=== PATIENT | male | born 1950 | race Caucasian/White ===

== ENCOUNTER 2016-05-13 19:03 | Emergency (ER) | payer MEDICAID ==
[2015-12-13 11:12] VITALS: Ht 182.9 cm; Wt 108.0 kg
[~2016-05-13] VITALS: Ht 182.9 cm; Wt 108.0 kg
[2016-05-13 19:03] VITALS: BP 127/70; PULSE 85; RESP 28; TEMP 97.9; O2SAT 97
[~2016-05-13 19:03] MED LIST: ALPHAGAN1 OP; ASA; ASA81 PO; CLOP75TA32 PO; FENTANYL; GLIP-172 PO; GLIP2.5T3 PO; GLUXR500 PO; HYDR-1189 PO; ISOS30TA PO; LISINOPRIL; METF-510 PO; METFORMIN; METO25TA3 PO; METO25TA6 PO; METOPROLOL; NITROSTAT; NITSL SL; OMEG1CAP55 PO; PARO-41 PO; PLAVIX; PREDEYE1% OP; PRO40 PO; SIMV40TA2 PO; SIMVASTATIN; TIMO5DRO4 OP; TORBREX OP; TYC3 PO
--- NOTE | 2016-05-13 19:03 | NUR ---
BIB 154, Placed in room 03. Placed on commercial litigation paralegal, blood pressure machine and pulse oximeter. To gown for exam. Side rails up. Report given to RAJAT Mast.
--- NOTE | 2016-05-13 19:15 | NUR ---
Patient alert and oriented x 4. Patient was brought in by ambulance with a complaint of sharp pain on the left upper chest and left side. No acute distress or SOB noted. O2 sat at 95%. Breathing even and unlabored. Pain scale 10/10. Will continue to monitor.
--- NOTE | 2016-05-13 19:20 | NUR ---
ER Dr. Rolon at bedside examining patient.
[2016-05-13] MEDS ORDERED: MORPHINE 4 MG/ML INJ. SYRINGE IVP ONE (19:30)
[2016-05-13] MEDS ORDERED: ONDANSETRON HCL 4 MG/2 ML VIAL IVP ONE ×2 (19:30→20:45)
[2016-05-13 19:42] LABS: BASOPHILS % (AUTO) 0.4 % (0.0-2.0); EOSINOPHILS # (AUTO) 0.3 K/uL (0.0-0.4); EOSINOPHILS % (AUTO) 3.5 % (0.0-4.0); HEMATOCRIT 44.3 % (36-54); HEMOGLOBIN 15.4 g/dL (14.0-18.0); LYMPHOCYTES # (AUTO) 1.3 K/uL (1.0-5.5); LYMPHOCYTES % (AUTO) 13.1 % (20.5-51.5); MEAN CORPUSCULAR HEMOGLOBIN 29 pg (27-31); MEAN CORPUSCULAR HGB CONC 35 % (32-36); MEAN CORPUSCULAR VOLUME 83 fL (79.0-98.0); MONOCYTES # (AUTO) 0.6 K/uL (0.0-1.0); MONOCYTES % (AUTO) 6.4 % (1.7-9.3); NEUTROPHILS # (AUTO) 7.4 K/uL (1.8-7.7); NEUTROPHILS % (AUTO) 76.6 % (40.0-70.0); PLATELET COUNT (AUTO) 152 K/uL (130-430); RED BLOOD CELL COUNT(AUTO) 5.33 MIL/uL (4.2-6.2); RED CELL DISTRIBUTION WIDTH 12.7 % (9.0-15.0); WHITE BLOOD COUNT (AUTO) 9.6 K/uL (4.8-10.8)
[2016-05-13 19:44] LABS: CALCIUM 9.1 mg/dL (8.4-11.0); CREATININE 1.07 mg/dL (0.55-1.30); POTASSIUM 3.4 mmol/L (3.5-5.1)
[2016-05-13 19:49] LABS: ALBUMIN 3.8 g/dL (3.4-4.8); INR 0.9 (0.80-1.20); PROTHROMBIN TIME 10.3 SECS (9.5-12.5); TOTAL BILIRUBIN 0.4 mg/dL (0.0-1.0); TOTAL PROTEIN, SERUM 7.1 g/dL (6.4-8.3)
[2016-05-13] MEDS ORDERED: NACL 0.9% 1,000 ML IV ONE (20:45)
[2016-05-13] MEDS ORDERED: MAG HYDROX/AL HYDROX/SIMETH 30 ML, BELLADONNA ALKALOIDS/PHENOBARB 10 ML, LIDOCAINE VISC... PO ONE ×3 (20:45)
[2016-05-13 21:15] VITALS: BP 110/68; PULSE 72; RESP 20; TEMP 97.8; O2SAT 98
--- NOTE | 2016-05-13 21:15 | NUR ---
Patient given written and verbal discharge instructions and verbalizes understanding. ER MD discussed with patient the results and treatment provided. Patient in stable condition. No acute distress or SOB noted upon discharge. Patient was even joking around while walking towards the exit. ID arm band removed. IV catheter removed intact and dressing applied, no active bleeding. Rx of Pepcid and Mylanta given. Patient educated on pain management. Pain Scale 0/10. Opportunity for questions provided and answered.
== END 2016-05-13 21:15 | disposition home or self-care (01) ==
LOC: SED 19:03
DX: K21.9 Gastro-esophageal reflux disease without esophagitis (principal); R55 Syncope and collapse; E11.9 Type 2 diabetes mellitus without complications; I10 Essential (primary) hypertension; I25.2 Old myocardial infarction; Z79.4 Long term (current) use of insulin
CPT/HCPCS: 36415; 71010; 80053; 83735; 84484; 85025; 85610; 85730; 93005; 96361; 96374; 96375; 96376; 99285; J2001; J2270; J2405; J7030

== ENCOUNTER 2016-08-19 18:23 | Emergency (ER) | payer MEDICAID ==
[~2016-08-19] VITALS: Ht 182.9 cm; Wt 128.8 kg
[~2016-08-19 18:23] MED LIST changes: -ASA; -ASA81 PO; -FENTANYL; -GLIP-172 PO; -GLIP2.5T3 PO; -GLUXR500 PO; -LISINOPRIL; -METFORMIN; -METO25TA3 PO; -METOPROLOL; -NITROSTAT; -OMEG1CAP55 PO; -PARO-41 PO; -PLAVIX; -PRO40 PO; -SIMV40TA2 PO; -SIMVASTATIN
[2016-08-19 18:29] VITALS: BP_SYST 127
[2016-08-19 20:35] VITALS: BP_SYST 124
== END 2016-08-19 20:35 | disposition home or self-care (01) ==
LOC: SED 18:23
DX: S60.512A Abrasion of left hand, initial encounter (principal); E11.9 Type 2 diabetes mellitus without complications; I10 Essential (primary) hypertension; Z79.84 Long term (current) use of oral hypoglycemic drugs; Z79.899 Other long term (current) drug therapy; W57.XXXA Bitten or stung by nonvenomous insect and other nonvenomous arthropods, initial encounter; Y93.89 Activity, other specified; Y92.89 Other specified places as the place of occurrence of the external cause; Y99.8 Other external cause status
CPT/HCPCS: 99281

== ENCOUNTER 2016-11-04 23:04 | Inpatient (IN) | payer MEDICAID ==
[~2016-11-04] VITALS: Ht 182.9 cm; Wt 71.7 kg
[2016-11-04 23:04] VITALS: BP_SYST 106
[2016-11-04] MEDS ORDERED: NACL 0.9% 1,000 ML IV ONE (23:30)
[2016-11-04 23:48] LABS: BASOPHILS % (AUTO) 0.7 % (0.0-2.0); EOSINOPHILS # (AUTO) 0.2 K/uL (0.0-0.4); EOSINOPHILS % (AUTO) 3.2 % (0.0-4.0); HEMATOCRIT 40.4 % (36-54); HEMOGLOBIN 13.8 g/dL (14.0-18.0); LYMPHOCYTES # (AUTO) 2.7 K/uL (1.0-5.5); MEAN CORPUSCULAR HEMOGLOBIN 30 pg (27-31); MEAN CORPUSCULAR HGB CONC 34 % (32-36); MEAN CORPUSCULAR VOLUME 87 fL (79.0-98.0); MONOCYTES # (AUTO) 0.6 K/uL (0.0-1.0); MONOCYTES % (AUTO) 8.5 % (1.7-9.3); NEUTROPHILS # (AUTO) 3.3 K/uL (1.8-7.7); NEUTROPHILS % (AUTO) 47.6 % (40.0-70.0); PLATELET COUNT (AUTO) 190 K/uL (130-430); RED BLOOD CELL COUNT(AUTO) 4.67 MIL/uL (4.2-6.2); RED CELL DISTRIBUTION WIDTH 12.6 % (9.0-15.0); WHITE BLOOD COUNT (AUTO) 6.8 K/uL (4.8-10.8)
[2016-11-05] VITALS (7 sets, daily range): BP systolic 92–133
[2016-11-05] LABS: CALCIUM 9.8 mg/dL (8.4-11.0); CREATININE 1.1 mg/dL (0.55-1.30); POTASSIUM 3.8 mmol/L (3.5-5.1)
[2016-11-05 00:15] LABS: ALBUMIN 3.3 g/dL (3.4-4.8); THYROID STIMULATING HORMONE 2.81 uIu/mL (0.34-4.82); TOTAL BILIRUBIN 0.4 mg/dL (0.0-1.0)
[2016-11-05] MEDS ORDERED: FENO160 PO (00:39)
[2016-11-05] MEDS ORDERED: DIA250 PO (00:39)
[2016-11-05] MEDS ORDERED: SIMV20TA2 PO (00:39)
[2016-11-05] MEDS ORDERED: ZOLP5TAB2 PO (00:39)
[2016-11-05 00:55] LABS: BILIRUBIN,URINE NEGATIVE (NEGATIVE); BLOOD, URINE NEGATIVE (NEGATIVE); CLARITY/URINE HAZY (CLEAR); COLOR,URINE YELLOW (YELLOW); GLUCOSE,URINE NEGATIVE (NEGATIVE); KETONES,URINE NEGATIVE (NEGATIVE); LEUKOCYTE ESTERASE ,URINE NEGATIVE (NEGATIVE); NITRITE, URINE NEGATIVE (NEGATIVE); PH,URINE 7.5 (5.0-8.0); PROTEIN URINE NEGATIVE (NEGATIVE)
[2016-11-05] MEDS ORDERED: INSULIN REGULAR, HUMAN 100 UNITS/ML, 10 ML VIAL (novoLIN R) SUBCUT PRN (02:30)
[2016-11-05] MEDS ORDERED: ENOXAPARIN SODIUM 40 MG/0.4 ML SYRINGE SUBCUT SCH (09:00)
[2016-11-05] MEDS ORDERED: ASPIRIN 325 MG TABLET (ECOTRIN) PO SCH (09:00)
[2016-11-05] MEDS ORDERED: METOPROLOL TARTRATE 25 MG TABLET PO SCH (09:00)
== END 2016-11-05 19:30 | disposition home or self-care (01) | DRG 198 ==
LOC: SED 23:04 → STU 11-05 02:20
DX: I25.119 Atherosclerotic heart disease of native coronary artery with unspecified angina pectoris (principal); E44.1 Mild protein-calorie malnutrition; I10 Essential (primary) hypertension; R00.1 Bradycardia, unspecified; E11.9 Type 2 diabetes mellitus without complications; E78.5 Hyperlipidemia, unspecified; W19.XXXA Unspecified fall, initial encounter; Y93.89 Activity, other specified; Y92.090 Kitchen in other non-institutional residence as the place of occurrence of the external cause; Y99.8 Other external cause status; I25.2 Old myocardial infarction; Z79.02 Long term (current) use of antithrombotics/antiplatelets; Z79.899 Other long term (current) drug therapy; Z95.5 Presence of coronary angioplasty implant and graft
CPT/HCPCS: 36415; 71010; 80053; 81003; 82962; 84443-TC; 84484; 85025; 93005; 93306; 96360; 99285; J1650; J1815; J7030

== ENCOUNTER 2017-11-30 21:38 | Emergency (ER) | payer MEDICAID, OTHER ==
[~2017-11-30] VITALS: Ht 182.9 cm; Wt 72.6 kg
[~2017-11-30 21:38] MED LIST changes: -ALPHAGAN1 OP; +DIA250 PO; +FENO160 PO; -HYDR-1189 PO; -PREDEYE1% OP; +SIMV20TA2 PO; -TIMO5DRO4 OP; -TORBREX OP; -TYC3 PO; +ZOLP5TAB2 PO
[2017-11-30 21:56] VITALS: BP_SYST 111
--- NOTE | 2017-12-01 01:08 | NUR ---
Pt called in, no answer
--- NOTE | 2017-12-01 01:09 | NUR ---
Pt called in, no answer
--- NOTE | 2017-12-01 01:10 | NUR ---
Pt yael in, no answer. Patient left without being seen. No further treatment provided
== END 2017-12-01 01:10 | disposition left against medical advice (07) ==
LOC: SED 21:38
DX: R22.9 Localized swelling, mass and lump, unspecified (principal); Z53.21 Procedure and treatment not carried out due to patient leaving prior to being seen by health care provider

== ENCOUNTER 2018-08-16 18:12 | Emergency (ER) | payer OTHER, MEDICAID ==
[~2018-08-16] VITALS: Ht 193 cm; Wt 69.9 kg
[2018-08-16 18:19] VITALS: BP_SYST 107
--- NOTE | 2018-08-16 18:19 | NUR ---
Patient to ER bed 02 to gown for evaluation. Side rails up.
--- NOTE | 2018-08-16 18:22 | NUR ---
Pt brought by self, A&Ox4, pt presents to ER with R lower abdominal , denies N/V/D, skin pink and warm , cap refill <3, VSS ,pt denies chest pain , pt able to ambulate, cap refill <3.
--- NOTE | 2018-08-16 18:30 | NUR ---
Dr Santana at bedside examining patient.
[2018-08-16 18:48] LABS: BASOPHILS # (AUTO) 0.1 K/uL (0.0-0.2); BASOPHILS % (AUTO) 0.9 % (0.0-2.0); EOSINOPHILS # (AUTO) 0.2 K/uL (0.0-0.4); EOSINOPHILS % (AUTO) 4.1 % (0.0-4.0); HEMATOCRIT 40.7 % (36-54); HEMOGLOBIN 13.9 g/dL (14.0-18.0); LYMPHOCYTES # (AUTO) 2.4 K/uL (1.0-5.5); LYMPHOCYTES % (AUTO) 40.4 % (20.5-51.5); MEAN CORPUSCULAR HEMOGLOBIN 29 pg (27-31); MEAN CORPUSCULAR HGB CONC 34 % (32-36); MEAN CORPUSCULAR VOLUME 86 fL (79.0-98.0); MONOCYTES # (AUTO) 0.5 K/uL (0.0-1.0); MONOCYTES % (AUTO) 8.8 % (1.7-9.3); NEUTROPHILS # (AUTO) 2.7 K/uL (1.8-7.7); NEUTROPHILS % (AUTO) 45.8 % (40.0-70.0); PLATELET COUNT (AUTO) 119 K/uL (130-430); RED BLOOD CELL COUNT(AUTO) 4.72 MIL/uL (4.2-6.2); RED CELL DISTRIBUTION WIDTH 13.5 % (9.0-15.0); WHITE BLOOD COUNT (AUTO) 5.9 K/uL (4.8-10.8)
[2018-08-16] MEDS ORDERED: NAPR-688 PO (18:56)
[2018-08-16] MEDS ORDERED: BRI.2% OP (18:56)
[2018-08-16] MEDS ORDERED: ASPI-859 PO (18:56)
[2018-08-16] MEDS ORDERED: XALEYE OP (18:56)
[2018-08-16] MEDS ORDERED: DORZ10DR10 RIGHT EYE (18:56)
[2018-08-16] MEDS ORDERED: TIMO5DRO15 OP (18:56)
--- NOTE | 2018-08-16 18:57 | NUR ---
Medication reconciliation completed with information provided by patient. Any prior medication reconciliation on file was reviewed and corrected.
[2018-08-16 19:05] LABS: CALCIUM 9.6 mg/dL (8.4-11.0); CREATININE 0.96 mg/dL (0.55-1.30)
[2018-08-16 19:06] LABS: PROTHROMBIN TIME 9.9 SECS (9.5-12.5)
[2018-08-16 19:09] LABS: ALBUMIN 3.4 g/dL (3.4-4.8); TOTAL BILIRUBIN 0.6 mg/dL (0.0-1.0)
--- NOTE | 2018-08-16 19:15 | NUR ---
Patient to CT scan in stable condition via gurney.
--- NOTE | 2018-08-16 19:26 | NUR ---
Patient returned from CT scan in stable condition via [facility]
[2018-08-16 19:40] LABS: BILIRUBIN,URINE NEGATIVE (NEGATIVE); BLOOD, URINE NEGATIVE (NEGATIVE); CLARITY/URINE CLEAR (CLEAR); COLOR,URINE YELLOW (YELLOW); GLUCOSE,URINE NEGATIVE (NEGATIVE); KETONES,URINE NEGATIVE (NEGATIVE); LEUKOCYTE ESTERASE ,URINE NEGATIVE (NEGATIVE); NITRITE, URINE NEGATIVE (NEGATIVE); PH,URINE 5.5 (5.0-8.0); PROTEIN URINE NEGATIVE (NEGATIVE); UROBILINOGEN,URINE 0.2 (0.2-1.0)
--- NOTE | 2018-08-16 19:51 | NUR ---
MARIA GUADALUPE Massey at bedside examining patient.
[2018-08-16 20:30] VITALS: BP_SYST 114
--- NOTE | 2018-08-16 20:30 | NUR ---
Patient given written and verbal discharge instructions and verbalizes understanding. ER MD discussed with patient the results and treatment provided. Patient in stable condition. ID arm band removed. IV catheter removed intact and dressing applied, no active bleeding. Rx of Lactulose and [place] given. Patient educated on pain management and to follow up with PMD. Pain Scale 0. Opportunity for questions provided and answered. Medication side effect fact sheet provided.
== END 2018-08-16 20:30 | disposition home or self-care (01) ==
LOC: SED 18:12
DX: K80.20 Calculus of gallbladder without cholecystitis without obstruction (principal); K59.00 Constipation, unspecified; I25.2 Old myocardial infarction; E11.9 Type 2 diabetes mellitus without complications; I10 Essential (primary) hypertension; E78.00 Pure hypercholesterolemia, unspecified; Z79.899 Other long term (current) drug therapy
CPT/HCPCS: 36415; 71045; 80053; 81003; 83605; 83690-TC; 85025; 85610-TC; 87040-TC; 93005; 99284

== ENCOUNTER 2018-10-04 19:09 | Emergency (ER) | payer OTHER, MEDICAID ==
[~2018-10-04] VITALS: Ht 182.9 cm; Wt 68.0 kg
[~2018-10-04 19:09] MED LIST changes: +ASPI-859 PO; +BRI.2% OP; -CLOP75TA32 PO; +DORZ10DR10 RIGHT EYE; -FENO160 PO; +NAPR-688 PO; -NITSL SL; +TIMO5DRO15 OP; +XALEYE OP; -ZOLP5TAB2 PO
[2018-10-04 19:10] VITALS: BP_SYST 100
[2018-10-04] MEDS ORDERED: KETOROLAC TROMETHAMINE 30 MG VIAL IVP ONE (20:15)
[2018-10-04 20:39] LABS: BASOPHILS # (AUTO) 0.1 K/uL (0.0-0.2); BASOPHILS % (AUTO) 0.8 % (0.0-2.0); EOSINOPHILS # (AUTO) 0.3 K/uL (0.0-0.4); EOSINOPHILS % (AUTO) 3.8 % (0.0-4.0); HEMATOCRIT 40.4 % (36-54); HEMOGLOBIN 14.1 g/dL (14.0-18.0); LYMPHOCYTES # (AUTO) 2.6 K/uL (1.0-5.5); LYMPHOCYTES % (AUTO) 35.2 % (20.5-51.5); MEAN CORPUSCULAR HEMOGLOBIN 31 pg (27-31); MEAN CORPUSCULAR HGB CONC 35 % (32-36); MEAN CORPUSCULAR VOLUME 88 fL (79.0-98.0); MONOCYTES # (AUTO) 0.6 K/uL (0.0-1.0); MONOCYTES % (AUTO) 8.1 % (1.7-9.3); NEUTROPHILS # (AUTO) 3.8 K/uL (1.8-7.7); NEUTROPHILS % (AUTO) 52.1 % (40.0-70.0); PLATELET COUNT (AUTO) 128 K/uL (130-430); RED BLOOD CELL COUNT(AUTO) 4.61 MIL/uL (4.2-6.2); RED CELL DISTRIBUTION WIDTH 13.2 % (9.0-15.0); WHITE BLOOD COUNT (AUTO) 7.2 K/uL (4.8-10.8)
[2018-10-04 20:52] LABS: CALCIUM 9.9 mg/dL (8.4-11.0); CREATININE 1.16 mg/dL (0.55-1.30); POTASSIUM 4.5 mmol/L (3.5-5.1)
[2018-10-04 21:07] LABS: ALBUMIN 3.5 g/dL (3.4-4.8); THYROID STIMULATING HORMONE 1.87 uIu/mL (0.34-4.82); TOTAL BILIRUBIN 0.5 mg/dL (0.0-1.0)
[2018-10-05 00:55] VITALS: BP_SYST 132
== END 2018-10-05 00:55 | disposition home or self-care (01) ==
LOC: SED 19:09
DX: R07.9 Chest pain, unspecified (principal); I25.2 Old myocardial infarction; E78.00 Pure hypercholesterolemia, unspecified; F17.210 Nicotine dependence, cigarettes, uncomplicated; Z71.6 Tobacco abuse counseling; Z79.84 Long term (current) use of oral hypoglycemic drugs; Z79.899 Other long term (current) drug therapy
CPT/HCPCS: 36415; 71045; 80053; 83880; 84443; 84484; 85025; 85379; 93005 ×2; 96374; 99284; J1885

== ENCOUNTER 2019-05-10 22:17 | Inpatient (IN) | payer OTHER, MEDICAID ==
[~2019-05-10] VITALS: Ht 182.9 cm; Wt 69.9 kg
[2019-05-10 22:18] VITALS: BP_SYST 120
[2019-05-10 22:56] LABS: BASOPHILS # (AUTO) 0.1 K/uL (0.0-0.2); BASOPHILS % (AUTO) 0.8 % (0.0-2.0); EOSINOPHILS # (AUTO) 0.3 K/uL (0.0-0.4); EOSINOPHILS % (AUTO) 3.8 % (0.0-4.0); HEMATOCRIT 41.6 % (36-54); HEMOGLOBIN 14.2 g/dL (14.0-18.0); LYMPHOCYTES # (AUTO) 2.5 K/uL (1.0-5.5); LYMPHOCYTES % (AUTO) 35.9 % (20.5-51.5); MEAN CORPUSCULAR HEMOGLOBIN 30 pg (27-31); MEAN CORPUSCULAR HGB CONC 34 % (32-36); MEAN CORPUSCULAR VOLUME 87 fL (79.0-98.0); MONOCYTES # (AUTO) 0.5 K/uL (0.0-1.0); MONOCYTES % (AUTO) 7.9 % (1.7-9.3); NEUTROPHILS # (AUTO) 3.6 K/uL (1.8-7.7); NEUTROPHILS % (AUTO) 51.6 % (40.0-70.0); PLATELET COUNT (AUTO) 140 K/uL (130-430); RED BLOOD CELL COUNT(AUTO) 4.78 MIL/uL (4.2-6.2); RED CELL DISTRIBUTION WIDTH 13.6 % (9.0-15.0); WHITE BLOOD COUNT (AUTO) 6.9 K/uL (4.8-10.8)
[2019-05-10 23:05] LABS: ANION GAP 10 (5-15); CALCIUM 9.6 mg/dL (8.4-11.0); CHLORIDE 105 mmol/L (98-107); CREATININE 1.15 mg/dL (0.55-1.30); GLUCOSE 95 mg/dL (70-99); POTASSIUM 3.8 mmol/L (3.5-5.1); SODIUM SERUM 138 mmol/L (136-145); UREA NITROGEN, BLOOD 27 mg/dL (8-21)
[2019-05-10 23:12] LABS: ALANINE AMINOTRANSFERASE 25 U/L (12-78); ALBUMIN 3.5 g/dL (3.4-4.8); ASPARTATE AMINOTRANSFERASE < 5 U/L (10-37); GFR AFRICAN AMERICAN 82 mL/min (>90); TOTAL BILIRUBIN 0.4 mg/dL (0.0-1.0)
[2019-05-10] MEDS ORDERED: NITSL SL (23:20)
[2019-05-10] MEDS ORDERED: IBUP-1970 PO (23:20)
[2019-05-10] MEDS ORDERED: LISI10TA5 PO (23:20)
[2019-05-11 00:13] VITALS: BP_SYST 123
[2019-05-11] MEDS ORDERED: INSULIN REGULAR, HUMAN 100 UNITS/ML, 10 ML VIAL (humuLIN R) SUBCUT PRN (00:30)
[2019-05-11] MEDS ORDERED: MORPHINE 4 MG/ML INJ. SYRINGE IVP PRN (00:30)
[2019-05-11] MEDS ORDERED: ALBUTEROL SULFATE 0.083% 2.5 MG/3 ML VIAL.NEB INH PRN (00:30)
[2019-05-11] MEDS ORDERED: ACETAMINOPHEN 325 MG TABLET PO PRN (00:30)
[2019-05-11] MEDS ORDERED: MORPHINE 2 MG/ML INJ. SYRINGE IVP PRN (00:30)
[2019-05-11] MEDS ORDERED: ONDANSETRON HCL 4 MG/2 ML VIAL IVP PRN (00:30)
[2019-05-11 00:50] VITALS: BP_SYST 123
[2019-05-11 08:07] LABS: CHOLESTEROL 140 mg/dL (<200); HDL CHOLESTEROL 28 mg/dL (>45); TRIGLYCERIDES 276 mg/dL (30-150)
[2019-05-11 08:08] LABS: LDL CHOLESTEROL 76 mg/dL (<100)
[2019-05-11] MEDS ORDERED: TIMOLOL MALEATE 0.5% OPHTHALMIC DROPS 5 ML OP SCH (09:00)
[2019-05-11] MEDS ORDERED: LATANOPROST 2.5 ML DROPS (XALATAN) OP SCH ×2 (09:00→09:28)
[2019-05-11] MEDS ORDERED: BRIMONIDINE TARTRATE 0.2% 5 mL EYE DROPS OP SCH (09:00)
[2019-05-11] MEDS ORDERED: acetaZOLAMIDE 250 MG TABLET (DIAMOX) PO SCH (09:00)
[2019-05-11] MEDS ORDERED: LISINOPRIL 10 MG TABLET (PRINIVIL) PO SCH (09:00)
[2019-05-11] MEDS ORDERED: ISOSORBIDE MONONITRATE 30 MG TAB.ER.24H PO SCH (09:00)
[2019-05-11] MEDS ORDERED: ASPIRIN 81 MG TABLET(ECOTRIN) PO SCH (09:00)
[2019-05-11] MEDS ORDERED: DORZOLAMIDE HCL/TIMOLOL MAL. 10 ML EYE DROPS (COSOPT) RIGHT EYE SCH (09:00)
[2019-05-11] MEDS ORDERED: DORZ10DR9 RIGHT EYE (10:35)
[2019-05-11 10:50] VITALS: BP_SYST 116
[2019-05-11] MEDS ORDERED: DORZOLAMIDE 2% OPHTHALMIC SOLN 5ML OP ONE (11:00)
[2019-05-11 12:39] VITALS: BP_SYST 97
[2019-05-11 15:19] VITALS: BP_SYST 100
[2019-05-11 16:10] VITALS: BP_SYST 92
[2019-05-11] MEDS ORDERED: SIMVASTATIN 20 MG TABLET PO SCH (21:00)
[2019-05-11] MEDS ORDERED: DORZOLAMIDE 2% OPHTHALMIC SOLN 5ML OP SCH (21:00)
== END 2019-05-11 16:22 | disposition home or self-care (01) | DRG 313 ==
LOC: SED 22:17 → STU 23:28
PROVIDERS: ADMIT Internal Medicine Hospice and Palliative Medicine; ATTEND Internal Medicine Hospice and Palliative Medicine
DX: R07.89 Other chest pain (principal); F20.0 Paranoid schizophrenia; F17.210 Nicotine dependence, cigarettes, uncomplicated; I10 Essential (primary) hypertension; J44.9 Chronic obstructive pulmonary disease, unspecified; E11.319 Type 2 diabetes mellitus with unspecified diabetic retinopathy without macular edema; E78.5 Hyperlipidemia, unspecified; I25.10 Atherosclerotic heart disease of native coronary artery without angina pectoris; I25.2 Old myocardial infarction; Z95.5 Presence of coronary angioplasty implant and graft; Z83.3 Family history of diabetes mellitus; Z82.49 Family history of ischemic heart disease and other diseases of the circulatory system; Z80.0 Family history of malignant neoplasm of digestive organs; Z79.82 Long term (current) use of aspirin; Z79.899 Other long term (current) drug therapy
CPT/HCPCS: 36415; 71045; 80053; 80061; 82550-TC; 82962; 83036; 83880; 84484; 85025; 93005; 93306; 99285; G0378

== ENCOUNTER 2019-08-29 12:06 | Emergency (ER) | payer OTHER, MEDICAID ==
[~2019-08-29] VITALS: Ht 177.8 cm; Wt 86.2 kg
[~2019-08-29 12:06] MED LIST changes: -DORZ10DR10 RIGHT EYE; +DORZ10DR9 RIGHT EYE; +IBUP-1970 PO; +LISI10TA5 PO; -METO25TA6 PO; +NITSL SL
[2019-08-29 12:15] VITALS: BP_SYST 90
[2019-08-29] MEDS: NACL 0.9% 1,000 ML IV ONE (13:14)
[2019-08-29 13:34] LABS: BASOPHILS % (AUTO) 0.6 % (0.0-2.0); EOSINOPHILS # (AUTO) 0.2 K/uL (0.0-0.4); EOSINOPHILS % (AUTO) 3.4 % (0.0-4.0); HEMATOCRIT 35.4 % (36-54); HEMOGLOBIN 11.8 g/dL (14.0-18.0); LYMPHOCYTES # (AUTO) 1.1 K/uL (1.0-5.5); LYMPHOCYTES % (AUTO) 25.4 % (20.5-51.5); MEAN CORPUSCULAR HEMOGLOBIN 30 pg (27-31); MEAN CORPUSCULAR HGB CONC 33 % (32-36); MEAN CORPUSCULAR VOLUME 90 fL (79.0-98.0); MONOCYTES # (AUTO) 0.5 K/uL (0.0-1.0); MONOCYTES % (AUTO) 10.6 % (1.7-9.3); NEUTROPHILS # (AUTO) 2.7 K/uL (1.8-7.7); PLATELET COUNT (AUTO) 117 K/uL (130-430); RED BLOOD CELL COUNT(AUTO) 3.95 MIL/uL (4.2-6.2); RED CELL DISTRIBUTION WIDTH 13.9 % (9.0-15.0); WHITE BLOOD COUNT (AUTO) 4.5 K/uL (4.8-10.8)
[2019-08-29 13:42] LABS: CALCIUM 8.7 mg/dL (8.4-11.0); CREATININE 1.36 mg/dL (0.55-1.30); POTASSIUM 5.1 mmol/L (3.5-5.1)
[2019-08-29 13:47] LABS: PROTHROMBIN TIME 10.4 SECS (9.5-12.5)
[2019-08-29 13:49] LABS: TOTAL BILIRUBIN 0.7 mg/dL (0.0-1.0)
[2019-08-29 13:52] LABS: BILIRUBIN,URINE NEGATIVE (NEGATIVE); BLOOD, URINE NEGATIVE (NEGATIVE); CLARITY/URINE CLEAR (CLEAR); COLOR,URINE YELLOW (YELLOW); GLUCOSE,URINE NEGATIVE (NEGATIVE); KETONES,URINE NEGATIVE (NEGATIVE); LEUKOCYTE ESTERASE ,URINE NEGATIVE (NEGATIVE); NITRITE, URINE NEGATIVE (NEGATIVE); PROTEIN URINE NEGATIVE (NEGATIVE); UROBILINOGEN,URINE 0.2 (0.2-1.0)
[2019-08-29 16:25] VITALS: BP_SYST 104
== END 2019-08-29 16:25 | disposition home or self-care (01) ==
LOC: SED 12:06 → EEVIPCON 12:06 → SED 16:25
DX: R53.1 Weakness (principal); J44.9 Chronic obstructive pulmonary disease, unspecified; I25.2 Old myocardial infarction; E78.00 Pure hypercholesterolemia, unspecified; F17.200 Nicotine dependence, unspecified, uncomplicated; Z79.899 Other long term (current) drug therapy; Z79.82 Long term (current) use of aspirin
CPT/HCPCS: 36415; 71045; 80053; 81003; 83605; 84484; 85025; 85610; 85730; 87040; 87086; 93005; 99285; J7030

== ENCOUNTER 2019-10-18 19:04 | Observation (INO) | payer OTHER, MEDICAID ==
[~2019-10-18] VITALS: Ht 182.9 cm; Wt 71.0 kg
[2019-10-18 19:04] VITALS: BP_SYST 101
[2019-10-18 19:29] LABS: BASOPHILS % (AUTO) 0.6 % (0.0-2.0); EOSINOPHILS # (AUTO) 0.4 K/uL (0.0-0.4); EOSINOPHILS % (AUTO) 5.7 % (0.0-4.0); HEMATOCRIT 37.5 % (36-54); HEMOGLOBIN 12.8 g/dL (14.0-18.0); LYMPHOCYTES # (AUTO) 1.8 K/uL (1.0-5.5); LYMPHOCYTES % (AUTO) 25.6 % (20.5-51.5); MEAN CORPUSCULAR HEMOGLOBIN 30 pg (27-31); MEAN CORPUSCULAR HGB CONC 34 % (32-36); MEAN CORPUSCULAR VOLUME 88 fL (79.0-98.0); MONOCYTES # (AUTO) 0.7 K/uL (0.0-1.0); MONOCYTES % (AUTO) 10.3 % (1.7-9.3); NEUTROPHILS % (AUTO) 57.8 % (40.0-70.0); PLATELET COUNT (AUTO) 129 K/uL (130-430); RED BLOOD CELL COUNT(AUTO) 4.25 MIL/uL (4.2-6.2); RED CELL DISTRIBUTION WIDTH 13.4 % (9.0-15.0)
[2019-10-18 19:53] LABS: ANION GAP 7 (5-15); CALCIUM 9.7 mg/dL (8.4-11.0); CHLORIDE 104 mmol/L (98-107); CREATININE 0.99 mg/dL (0.55-1.30); GLUCOSE 131 mg/dL (70-99); POTASSIUM 4.4 mmol/L (3.5-5.1); SODIUM SERUM 139 mmol/L (136-145); UREA NITROGEN, BLOOD 25 mg/dL (8-21)
[2019-10-18 19:56] LABS: GFR AFRICAN AMERICAN 97 mL/min (>90)
[2019-10-18] MEDS ORDERED: ASPIRIN 81 MG TAB.CHEW PO ONE (21:45)
[2019-10-18] MEDS ORDERED: MORPHINE 2 MG/ML INJ. SYRINGE IVP PRN (22:30)
[2019-10-18] MEDS ORDERED: ALBUTEROL SULFATE 0.083% 2.5 MG/3 ML VIAL.NEB INH PRN (22:30)
[2019-10-18] MEDS ORDERED: MORPHINE 4 MG/ML INJ. SYRINGE IVP PRN (22:30)
[2019-10-18] MEDS ORDERED: NALOXONE HCL 0.4 MG/ML AMP (NARCAN) IVP PRN (22:30)
[2019-10-18 22:55] VITALS: BP_SYST 131
[2019-10-18 23:00] VITALS: BP_SYST 131
[2019-10-19 08:00] VITALS: BP_SYST 110
[2019-10-19 08:03] LABS: BASOPHILS % (AUTO) 0.7 % (0.0-2.0); EOSINOPHILS # (AUTO) 0.4 K/uL (0.0-0.4); EOSINOPHILS % (AUTO) 6.3 % (0.0-4.0); HEMATOCRIT 37.3 % (36-54); HEMOGLOBIN 13.1 g/dL (14.0-18.0); LYMPHOCYTES # (AUTO) 1.8 K/uL (1.0-5.5); LYMPHOCYTES % (AUTO) 28.4 % (20.5-51.5); MEAN CORPUSCULAR HEMOGLOBIN 31 pg (27-31); MEAN CORPUSCULAR HGB CONC 35 % (32-36); MEAN CORPUSCULAR VOLUME 88 fL (79.0-98.0); MONOCYTES # (AUTO) 0.6 K/uL (0.0-1.0); MONOCYTES % (AUTO) 10.4 % (1.7-9.3); NEUTROPHILS # (AUTO) 3.4 K/uL (1.8-7.7); NEUTROPHILS % (AUTO) 54.2 % (40.0-70.0); PLATELET COUNT (AUTO) 128 K/uL (130-430); RED BLOOD CELL COUNT(AUTO) 4.23 MIL/uL (4.2-6.2); RED CELL DISTRIBUTION WIDTH 13.1 % (9.0-15.0); WHITE BLOOD COUNT (AUTO) 6.3 K/uL (4.8-10.8)
[2019-10-19 08:04] LABS: ANION GAP 1 (5-15); ASPARTATE AMINOTRANSFERASE 19 U/L (10-37); CALCIUM 9.5 mg/dL (8.4-11.0); CHLORIDE 109 mmol/L (98-107); CREATININE 1.12 mg/dL (0.55-1.30); GFR AFRICAN AMERICAN 84 mL/min (>90); GLUCOSE 104 mg/dL (70-99); POTASSIUM 4.4 mmol/L (3.5-5.1); SODIUM SERUM 139 mmol/L (136-145); TOTAL BILIRUBIN 0.3 mg/dL (0.0-1.0); UREA NITROGEN, BLOOD 22 mg/dL (8-21)
[2019-10-19 08:05] LABS: ALANINE AMINOTRANSFERASE 40 U/L (12-78); ALBUMIN 3.3 g/dL (3.4-4.8)
[2019-10-19] MEDS ORDERED: BRIMONIDINE TARTRATE 0.2% 5 mL EYE DROPS OP SCH (09:00)
[2019-10-19] MEDS ORDERED: ISOSORBIDE MONONITRATE 30 MG TAB.ER.24H PO SCH (09:00)
[2019-10-19] MEDS ORDERED: LISINOPRIL 10 MG TABLET (PRINIVIL) PO SCH (09:00)
[2019-10-19] MEDS ORDERED: ASPIRIN 81 MG TABLET(ECOTRIN) PO SCH (09:00)
[2019-10-19] MEDS ORDERED: TIMOLOL MALEATE 0.5% OPHTHALMIC DROPS 5 ML OP SCH (09:00)
[2019-10-19] MEDS ORDERED: acetaZOLAMIDE 250 MG TABLET (DIAMOX) PO SCH (09:00)
[2019-10-19 11:38] VITALS: BP_SYST 107
[2019-10-19 13:19] LABS: CHOLESTEROL 115 mg/dL (<200); HDL CHOLESTEROL 34 mg/dL (>45); LDL CHOLESTEROL 65 mg/dL (<100); TRIGLYCERIDES 148 mg/dL (30-150)
[2019-10-19 15:21] VITALS: BP_SYST 96
[2019-10-19 15:48] VITALS: BP_SYST 110
[2019-10-19] MEDS ORDERED: SIMVASTATIN 20 MG TABLET PO SCH (21:00)
== END 2019-10-19 17:35 | disposition home or self-care (01) ==
LOC: SED 19:04 → INTOOBSV 21:45 → SMU 21:45 → STU 22:09
PROVIDERS: ADMIT Internal Medicine Hospice and Palliative Medicine; ATTEND Internal Medicine Hospice and Palliative Medicine
DX: R07.89 Other chest pain (principal); I25.10 Atherosclerotic heart disease of native coronary artery without angina pectoris; I10 Essential (primary) hypertension; I25.2 Old myocardial infarction; E78.5 Hyperlipidemia, unspecified; F17.210 Nicotine dependence, cigarettes, uncomplicated; E11.9 Type 2 diabetes mellitus without complications; H40.9 Unspecified glaucoma; F41.9 Anxiety disorder, unspecified; F20.9 Schizophrenia, unspecified; H54.7 Unspecified visual loss; Z95.0 Presence of cardiac pacemaker; Z95.5 Presence of coronary angioplasty implant and graft; Z79.82 Long term (current) use of aspirin; Z79.84 Long term (current) use of oral hypoglycemic drugs; Z79.899 Other long term (current) drug therapy
CPT/HCPCS: 36415 ×2; 71045; 80048; 80053; 80061; 84484 ×2; 85025 ×2; 93005; 93306; 99285; G0378; J7030

== ENCOUNTER 2019-11-16 20:43 | Emergency (ER) | payer OTHER, MEDICAID ==
[~2019-11-16] VITALS: Ht 182.9 cm; Wt 73.5 kg
[2019-11-16 20:51] VITALS: BP_SYST 121
[2019-11-16] MEDS ORDERED: NACL 0.9% 1,000 ML IV ONE (21:30)
[2019-11-16 21:38] LABS: BASOPHILS # (AUTO) 0.1 K/uL (0.0-0.2); BASOPHILS % (AUTO) 0.8 % (0.0-2.0); EOSINOPHILS # (AUTO) 0.4 K/uL (0.0-0.4); EOSINOPHILS % (AUTO) 7.4 % (0.0-4.0); HEMATOCRIT 39.1 % (36-54); HEMOGLOBIN 13.4 g/dL (14.0-18.0); LYMPHOCYTES % (AUTO) 33.4 % (20.5-51.5); MEAN CORPUSCULAR HEMOGLOBIN 31 pg (27-31); MEAN CORPUSCULAR HGB CONC 34 % (32-36); MEAN CORPUSCULAR VOLUME 89 fL (79.0-98.0); MONOCYTES # (AUTO) 0.5 K/uL (0.0-1.0); MONOCYTES % (AUTO) 8.3 % (1.7-9.3); NEUTROPHILS % (AUTO) 50.1 % (40.0-70.0); PLATELET COUNT (AUTO) 133 K/uL (130-430); RED BLOOD CELL COUNT(AUTO) 4.41 MIL/uL (4.2-6.2); RED CELL DISTRIBUTION WIDTH 13.5 % (9.0-15.0); WHITE BLOOD COUNT (AUTO) 6.1 K/uL (4.8-10.8)
[2019-11-16 21:42] LABS: ANION GAP 7 (5-15); CALCIUM 9.3 mg/dL (8.4-11.0); CHLORIDE 103 mmol/L (98-107); CREATININE 1.13 mg/dL (0.55-1.30); GLUCOSE 182 mg/dL (70-99); POTASSIUM 3.9 mmol/L (3.5-5.1); SODIUM SERUM 140 mmol/L (136-145); UREA NITROGEN, BLOOD 24 mg/dL (8-21)
[2019-11-16 21:49] LABS: GFR AFRICAN AMERICAN 83 mL/min (>90)
[2019-11-16 21:51] LABS: ALANINE AMINOTRANSFERASE 35 U/L (12-78); ALBUMIN 3.3 g/dL (3.4-4.8); ASPARTATE AMINOTRANSFERASE 22 U/L (10-37); TOTAL BILIRUBIN 0.4 mg/dL (0.0-1.0)
[2019-11-16 22:52] VITALS: BP_SYST 120
[2019-11-16] MEDS ORDERED: LIP40 PO (22:53)
[2019-11-16 22:58] LABS: BILIRUBIN,URINE NEGATIVE (NEGATIVE); BLOOD, URINE NEGATIVE (NEGATIVE); CLARITY/URINE CLEAR (CLEAR); COLOR,URINE YELLOW (YELLOW); GLUCOSE,URINE NEGATIVE (NEGATIVE); KETONES,URINE NEGATIVE (NEGATIVE); LEUKOCYTE ESTERASE ,URINE 3+ (NEGATIVE); NITRITE, URINE NEGATIVE (NEGATIVE); PROTEIN URINE NEGATIVE (NEGATIVE); UROBILINOGEN,URINE 0.2 (0.2-1.0)
[2019-11-16 23:54] LABS: BACTERIA,URINE MODERATE /HPF (None Seen); WBC,URINE 20-50 /HPF (0-3)
== END 2019-11-16 21:00 | disposition home or self-care (01) ==
LOC: SED 20:43
DX: E86.0 Dehydration (principal); R42 Dizziness and giddiness; N39.0 Urinary tract infection, site not specified; J44.9 Chronic obstructive pulmonary disease, unspecified; I25.2 Old myocardial infarction; E78.00 Pure hypercholesterolemia, unspecified; Z95.0 Presence of cardiac pacemaker; Z79.82 Long term (current) use of aspirin
CPT/HCPCS: 36415; 70450; 71045; 80053; 81000; 82550; 83880; 84484; 85025; 85379; 87086; 93005; 96360; 99285; J7030; 87186-TC

== ENCOUNTER 2019-12-11 00:32 | Observation (INO) | payer OTHER, MEDICAID ==
[~2019-12-11] VITALS: Ht 182.9 cm; Wt 77.6 kg
[2019-12-11 00:32] VITALS: BP_SYST 138
[~2019-12-11 00:32] MED LIST changes: -BRI.2% OP; -DIA250 PO; -DORZ10DR9 RIGHT EYE; -IBUP-1970 PO; -ISOS30TA PO; +LIP40 PO; -LISI10TA5 PO; -METF-510 PO; -NAPR-688 PO; -NITSL SL; -SIMV20TA2 PO; -TIMO5DRO15 OP; -XALEYE OP
--- NOTE | 2019-12-11 00:32 | NUR ---
Pt biba to bed 2 for evaluation
--- NOTE | 2019-12-11 00:40 | NUR ---
PT AAO AND WAS BIB AMBULANCE FOR SUDDEN ONSET OF C.P. WHILE SLEEPING WITH SOB. PT TOOK ONE NTG AT HOME WITHOUT RELIEF. PT WAS GIVEN AN ADDITIONAL SPRAY OF NTG AND AN ASPIRIN ON SCENE. UPON ARRIVAL, PT DENIES ANY PAIN OF DISCOMFORT CURRENTLY.
--- NOTE | 2019-12-11 00:45 | NUR ---
ER Dr. Patrick at bedside examining patient.
[2019-12-11] MEDS ORDERED: NITROGLYCERIN 1 INCH (GM) OINT. TD ONE (01:00)
[2019-12-11 01:07] LABS: BASOPHILS # (AUTO) 0.1 K/uL (0.0-0.2); BASOPHILS % (AUTO) 0.8 % (0.0-2.0); EOSINOPHILS # (AUTO) 0.5 K/uL (0.0-0.4); EOSINOPHILS % (AUTO) 5.6 % (0.0-4.0); HEMATOCRIT 42.9 % (36-54); HEMOGLOBIN 14.5 g/dL (14.0-18.0); LYMPHOCYTES # (AUTO) 2.7 K/uL (1.0-5.5); LYMPHOCYTES % (AUTO) 32.9 % (20.5-51.5); MEAN CORPUSCULAR HEMOGLOBIN 30 pg (27-31); MEAN CORPUSCULAR HGB CONC 34 % (32-36); MEAN CORPUSCULAR VOLUME 88 fL (79.0-98.0); MONOCYTES # (AUTO) 0.9 K/uL (0.0-1.0); MONOCYTES % (AUTO) 10.8 % (1.7-9.3); NEUTROPHILS # (AUTO) 4.1 K/uL (1.8-7.7); NEUTROPHILS % (AUTO) 49.9 % (40.0-70.0); PLATELET COUNT (AUTO) 139 K/uL (130-430); RED BLOOD CELL COUNT(AUTO) 4.85 MIL/uL (4.2-6.2); RED CELL DISTRIBUTION WIDTH 13.3 % (9.0-15.0); WHITE BLOOD COUNT (AUTO) 8.2 K/uL (4.8-10.8)
--- NOTE | 2019-12-11 01:11 | NUR ---
Portable X Ray bedside, well tolerated
[2019-12-11 01:22] LABS: CALCIUM 9.2 mg/dL (8.4-11.0); CREATININE 1.03 mg/dL (0.55-1.30); POTASSIUM 4.1 mmol/L (3.5-5.1)
[2019-12-11 01:28] LABS: ALBUMIN 3.6 g/dL (3.4-4.8); TOTAL BILIRUBIN 0.3 mg/dL (0.0-1.0)
--- NOTE | 2019-12-11 01:50 | NUR ---
Swabbed Covid-19 and sent to lab.
--- NOTE | 2019-12-11 02:30 | NUR ---
VSS no s/s of acute distress Resting on gurney rails up
[2019-12-11 02:48] VITALS: BP_SYST 116
--- NOTE | 2019-12-11 02:48 | NUR ---
ADMISSION NOTE: Received patient from ER via jessica, received report from RAJAT SAMUEL. Patient admitted with diagnosis of CHEST PAIN. Patient oriented to hospital routine, call light, toileting and safety-patient verbalized understanding.
--- NOTE | 2019-12-11 02:48 | NUR ---
Transfer to Tele via ACLS protocol. Licensed nurse present. IV present no signs or symptoms of infiltration.
--- NOTE | 2019-12-11 02:48 | NUR ---
Patient will be admitted to care of Dr. Campbell. Admitted to Tele unit. Will go to room 117. Belongings list completed. Complete and up to date summary report printed. SBAR report to be given at bedside with opportunity for questions.
--- NOTE | 2019-12-11 03:35 | NUR ---
ROUNDS PATIENT RESTING IN BED AWAKE WATCHING TV. DENIES CHEST PAIN AT THIS TIME. BREATHING UNLABORED ON ROOM AIR. BED IN LOWEST LOCKED POSITION WITH ALARM ON. EXPLAINED TO PATIENT PURPOSE OF BED ALARM PATIENT AGREED TO USE IT. PATIENT INSTRUCTED WITH CALL LIGHT USE. PLACED CALL LIGHT WITH IN REACH.
[2019-12-11] MEDS ORDERED: DIA250 PO (03:45)
[2019-12-11] MEDS ORDERED: BRI.2% EACH EYE (03:47)
[2019-12-11] MEDS ORDERED: TIMO5DRO15 EACH EYE (03:47)
--- NOTE | 2019-12-11 04:20 | NUR ---
FLU SHOT FLU SHOT OFFERED PATIENT UNDECIDED TO GET FLU SHOT IN THIS FACILITY. PER PATIENT HE USUALLY GET IT WITH HIS FROM THEIR PCP. PATIENT MADE AWARE IT IS AVAILABLE ANYTIME IN THIS FACILITY IF HE DECIDE TO GET IT HERE.
[2019-12-11] MEDS ORDERED: MORPHINE 2 MG/ML INJ. SYRINGE IVP PRN (05:30)
[2019-12-11] MEDS ORDERED: ALBUTEROL SULFATE 0.083% 2.5 MG/3 ML VIAL.NEB INH PRN (05:30)
[2019-12-11] MEDS ORDERED: NALOXONE HCL 0.4 MG/ML AMP (NARCAN) IVP PRN (05:30)
--- NOTE | 2019-12-11 05:44 | NUR ---
CONSULT: CONSULT CALLED FOR DR. GAMEZ I SPOKE TO MÓNICA AZEVEDO REASON FOR CONSULT: CHEST PAIN REQUESTING CONSULT: DR. ARZATE DIABETES MANAGER PHONE NUMBER: [phone]
--- NOTE | 2019-12-11 06:15 | NUR ---
OOB ASSISTED PATIENT OUT OF BED FOR BATHROOM USE. NO C/O OF CHEST PAIN.
--- NOTE | 2019-12-11 06:30 | NUR ---
CLOSING NOTES PATIENT CONDITION UNCHANGED. AWAKE IN BED WATCHING TV. BREATHING UNLABORED ON ROOM AIR. DENIES ANY PAIN. BED IN LOWEST LOCKED POSITION WITH ALARM ON. CALL LIGHT WITH IN REACH.
--- NOTE | 2019-12-11 07:15 | NUR ---
HOME MEDICATIONS: Patient in possession of medications from home. Patient was informed that home medications cannot be present at bedside. Explained to patient that hospital pharmacy will store medications and return them upon discharge. Patient verbalized understanding. Medications were reviewed with patient and placed in home med envelope. Envelope was sealed. Accepted by hospital pharmacy at this time. Receipt placed in paper chart.
[2019-12-11 08:00] VITALS: BP_SYST 123
[2019-12-11 08:49] LABS: BASOPHILS % (AUTO) 0.6 % (0.0-2.0); EOSINOPHILS # (AUTO) 0.4 K/uL (0.0-0.4); EOSINOPHILS % (AUTO) 6.3 % (0.0-4.0); HEMOGLOBIN 15.2 g/dL (14.0-18.0); LYMPHOCYTES # (AUTO) 2.2 K/uL (1.0-5.5); LYMPHOCYTES % (AUTO) 31.2 % (20.5-51.5); MEAN CORPUSCULAR HEMOGLOBIN 30 pg (27-31); MEAN CORPUSCULAR HGB CONC 34 % (32-36); MEAN CORPUSCULAR VOLUME 88 fL (79.0-98.0); MONOCYTES # (AUTO) 0.7 K/uL (0.0-1.0); MONOCYTES % (AUTO) 10.2 % (1.7-9.3); NEUTROPHILS # (AUTO) 3.6 K/uL (1.8-7.7); NEUTROPHILS % (AUTO) 51.7 % (40.0-70.0); PLATELET COUNT (AUTO) 134 K/uL (130-430); RED BLOOD CELL COUNT(AUTO) 5.14 MIL/uL (4.2-6.2); RED CELL DISTRIBUTION WIDTH 13.4 % (9.0-15.0)
[2019-12-11 08:53] LABS: ALANINE AMINOTRANSFERASE 56 U/L (12-78); ALBUMIN 3.4 g/dL (3.4-4.8); ANION GAP 2 (5-15); ASPARTATE AMINOTRANSFERASE 28 U/L (10-37); CALCIUM 9.4 mg/dL (8.4-11.0); CHLORIDE 107 mmol/L (98-107); CREATININE 1.01 mg/dL (0.55-1.30); GLUCOSE 111 mg/dL (70-99); POTASSIUM 4.1 mmol/L (3.5-5.1); SODIUM SERUM 140 mmol/L (136-145); TOTAL BILIRUBIN 0.4 mg/dL (0.0-1.0); UREA NITROGEN, BLOOD 22 mg/dL (8-21)
[2019-12-11 08:54] LABS: GFR AFRICAN AMERICAN 95 mL/min (>90)
[2019-12-11 08:59] LABS: CHOLESTEROL 163 mg/dL (<200); HDL CHOLESTEROL 40 mg/dL (>45); LDL CHOLESTEROL 89 mg/dL (<100); TRIGLYCERIDES 171 mg/dL (30-150)
[2019-12-11] MEDS ORDERED: TIMOLOL MALEATE 0.5% OPHTHALMIC DROPS 5 ML EACH EYE SCH (09:00)
[2019-12-11] MEDS ORDERED: ASPIRIN 81 MG TABLET(ECOTRIN) PO SCH (09:00)
[2019-12-11] MEDS ORDERED: ISOSORBIDE MONONITRATE 30 MG TAB.ER.24H PO SCH (09:00)
[2019-12-11] MEDS ORDERED: LISINOPRIL 10 MG TABLET (PRINIVIL) PO SCH (09:00)
[2019-12-11] MEDS ORDERED: ASPIRIN 325 MG TABLET PO SCH (09:00)
[2019-12-11] MEDS ORDERED: ATORVASTATIN 20 MG TABLET PO SCH (09:00)
[2019-12-11] MEDS ORDERED: acetaZOLAMIDE 250 MG TABLET (DIAMOX) PO SCH ×2 (09:00)
[2019-12-11] MEDS ORDERED: BRIMONIDINE TARTRATE 0.2% 5 mL EYE DROPS EACH EYE SCH (09:00)
[2019-12-11 09:53] VITALS: BP_SYST 123
--- NOTE | 2019-12-11 10:05 | NUR ---
Pt's VS stable. No SOB noted. Pt denied any CP or Chest discomfort. Left message to Dr. Quiroz re: pt's cloth presser instructed pt to stop taking some of the medications on pt's current eMAR in Hospital. Awaiting response.
--- NOTE | 2019-12-11 10:13 | NUR ---
Spoke with Dr. Quiroz re: pt's medication regimen. New orders received. Please see MD orders and eMAR. Pt to discontinue Lisinoril and Imdur. Pt also supposed to only take 250 mg of Acetazolamide daily (PO). Will carry out.
[2019-12-11 12:00] VITALS: BP_SYST 123
[2019-12-11 12:34] VITALS: BP_SYST 123
--- NOTE | 2019-12-11 12:54 | NUR ---
PAGED DR GAMEZ SPOKE TO ELIZABETH AT EXCHANGE
--- NOTE | 2019-12-11 14:15 | NUR ---
No complains of pain or discomfort. No acute events noted or reported during shift. Discharge instructions given to pt. Pt verbalized understanding and signed acknowledgement. PIV removed. No bleeding or drainage noted. Pt stated that he has all his belongings. Home meds collected from Pharmacy and returned to pt. Pt safety maintained during hospital stay.
--- NOTE | 2019-12-11 15:00 | NUR ---
D/C Patient: Patient given medication reconciliation form and D/C instructions. Exit Care provided. Patient verbalized understanding. MD discussed with patient the results and treatment provided. Ambulatory with steady gait for discharge to home. Patient in stable condition, ID band removed. IV catheter removed, intact and dressing applied, no active bleeding. Patient educated on pain management. All belongings sent with patient.
--- NOTE | 2019-12-11 15:00 | NUR ---
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 Accompanied pt to discharge curbside. Pt left by personal vehicle with his . Pt discharged safely.
[2019-12-11] MEDS ORDERED: SIMVASTATIN 20 MG TABLET PO SCH (21:00)
--- NOTE | 2019-12-17 11:47 | NUR ---
Discharge Follow Up Call: KEYBOARD INSTRUMENT TUNER phoned [phone] and spoke with patient who stated he is "doing good" and he does not have any questions/concerns about his discharge. Pt stated he has an appointment with his PCP on 01/06. Pt stated he tried multiple ways to stop smoking and none of them worked, but will consult with PCP again for other ways or to try them again. Pt also requested for advanced directive to be mailed to him. No further SS call needed.
== END 2019-12-11 15:44 | disposition home or self-care (01) ==
LOC: SED 00:32 → STU 01:44
PROVIDERS: ADMIT Internal Medicine Hospice and Palliative Medicine; ATTEND Internal Medicine Hospice and Palliative Medicine
DX: R07.89 Other chest pain (principal); Z20.828 Contact with and (suspected) exposure to other viral communicable diseases; I25.119 Atherosclerotic heart disease of native coronary artery with unspecified angina pectoris; I10 Essential (primary) hypertension; J44.9 Chronic obstructive pulmonary disease, unspecified; I25.2 Old myocardial infarction; E78.00 Pure hypercholesterolemia, unspecified; K21.9 Gastro-esophageal reflux disease without esophagitis; H40.9 Unspecified glaucoma; E78.5 Hyperlipidemia, unspecified; H54.61 Unqualified visual loss, right eye, normal vision left eye; F17.200 Nicotine dependence, unspecified, uncomplicated; F20.9 Schizophrenia, unspecified; F03.90 Unspecified dementia, unspecified severity, without behavioral disturbance, psychotic disturbance, mood disturbance, and anxiety; Z86.73 Personal history of transient ischemic attack (TIA), and cerebral infarction without residual deficits; Z95.0 Presence of cardiac pacemaker; Z79.899 Other long term (current) drug therapy; Z95.5 Presence of coronary angioplasty implant and graft
CPT/HCPCS: 36415; 71045; 80053; 80061; 83880; 84484; 85025; 87426; 93005; 99285; G0378

== ENCOUNTER 2020-03-27 01:16 | Observation (INO) | payer OTHER, MEDICAID, SELFPAY ==
[~2020-03-27] VITALS: Ht 182.9 cm; Wt 82.2 kg
[~2020-03-27 01:16] MED LIST changes: +BRI.2% EACH EYE; +DIA250 PO; +TIMO5DRO15 EACH EYE
[2020-03-27 01:24] VITALS: BP_SYST 118
[2020-03-27] MEDS ORDERED: ASPIRIN 81 MG TAB.CHEW PO ONE (01:30)
[2020-03-27] MEDS ORDERED: NITSL SL (01:48)
[2020-03-27 01:49] LABS: BASOPHILS % (AUTO) 0.6 % (0.0-2.0); EOSINOPHILS # (AUTO) 0.4 K/uL (0.0-0.4); HEMATOCRIT 44.3 % (36-54); MEAN CORPUSCULAR HEMOGLOBIN 29 pg (27-31); MEAN CORPUSCULAR HGB CONC 34 % (32-36); MONOCYTES # (AUTO) 0.8 K/uL (0.0-1.0); MONOCYTES % (AUTO) 10.5 % (1.7-9.3)
[2020-03-27] MEDS ORDERED: MORPHINE 2 MG/ML INJ. SYRINGE ONE (01:50)
[2020-03-27 01:53] LABS: CALCIUM 9.2 mg/dL (8.4-11.0); CREATININE 1.3 mg/dL (0.55-1.30); POTASSIUM 3.6 mmol/L (3.5-5.1)
[2020-03-27 01:54] LABS: EOSINOPHILS % (AUTO) 4.7 % (0.0-4.0); LYMPHOCYTES # (AUTO) 2.6 K/uL (1.0-5.5); LYMPHOCYTES % (AUTO) 32.8 % (20.5-51.5); MEAN CORPUSCULAR VOLUME 86 fL (79.0-98.0); NEUTROPHILS # (AUTO) 4.1 K/uL (1.8-7.7); NEUTROPHILS % (AUTO) 51.4 % (40.0-70.0); PLATELET COUNT (AUTO) 145 K/uL (130-430); RED BLOOD CELL COUNT(AUTO) 5.14 MIL/uL (4.2-6.2); RED CELL DISTRIBUTION WIDTH 13.8 % (9.0-15.0)
[2020-03-27 01:59] LABS: ALBUMIN 3.5 g/dL (3.4-4.8); TOTAL BILIRUBIN 0.4 mg/dL (0.0-1.0)
[2020-03-27] MEDS ORDERED: MORPHINE 2 MG/ML INJ. SYRINGE IVP ONE (02:00)
[2020-03-27 03:15] VITALS: BP_SYST 113
[2020-03-27] MEDS ORDERED: MORPHINE 4 MG/ML INJ. SYRINGE IVP PRN (04:30)
[2020-03-27] MEDS ORDERED: ACETAMINOPHEN 325 MG TABLET PO PRN (04:30)
[2020-03-27] MEDS ORDERED: NALOXONE HCL 0.4 MG/ML AMP (NARCAN) IVP PRN (04:30)
[2020-03-27] MEDS ORDERED: HYDROcodone/ACETAMIN 5-325 MG TAB (NORCO/ VICODIN) PO PRN (04:30)
[2020-03-27] MEDS ORDERED: ALBUTEROL SULFATE 0.083% 2.5 MG/3 ML VIAL.NEB INH PRN (04:30)
[2020-03-27] MEDS ORDERED: LORazepam 2 MG/ML VIAL IVP PRN (04:30)
[2020-03-27] MEDS ORDERED: NITROGLYCERIN 0.4 MG TAB.SUBL SL SCH (04:45)
[2020-03-27 08:00] VITALS: BP_SYST 110
[2020-03-27] MEDS ORDERED: TIMOLOL MALEATE 0.5% OPHTHALMIC DROPS 5 ML EACH EYE SCH (09:00)
[2020-03-27] MEDS ORDERED: ENOXAPARIN SODIUM 40 MG/0.4 ML SYRINGE SUBCUT SCH (09:00)
[2020-03-27] MEDS ORDERED: acetaZOLAMIDE 250 MG TABLET (DIAMOX) PO SCH (09:00)
[2020-03-27] MEDS ORDERED: ASPIRIN 81 MG TABLET(ECOTRIN) PO SCH (09:00)
[2020-03-27] MEDS ORDERED: ATORVASTATIN 20 MG TABLET PO SCH (09:00)
[2020-03-27] MEDS ORDERED: BRIMONIDINE TARTRATE 0.2% 5 mL EYE DROPS EACH EYE SCH (09:00)
[2020-03-27 09:25] LABS: BASOPHILS # (AUTO) 0.1 K/uL (0.0-0.2); BASOPHILS % (AUTO) 1.1 % (0.0-2.0); EOSINOPHILS # (AUTO) 0.4 K/uL (0.0-0.4); EOSINOPHILS % (AUTO) 5.4 % (0.0-4.0); HEMATOCRIT 43.8 % (36-54); HEMOGLOBIN 14.9 g/dL (14.0-18.0); LYMPHOCYTES # (AUTO) 2.6 K/uL (1.0-5.5); LYMPHOCYTES % (AUTO) 35.7 % (20.5-51.5); MEAN CORPUSCULAR HEMOGLOBIN 29 pg (27-31); MEAN CORPUSCULAR HGB CONC 34 % (32-36); MEAN CORPUSCULAR VOLUME 86 fL (79.0-98.0); MONOCYTES # (AUTO) 0.7 K/uL (0.0-1.0); MONOCYTES % (AUTO) 9.6 % (1.7-9.3); NEUTROPHILS # (AUTO) 3.4 K/uL (1.8-7.7); NEUTROPHILS % (AUTO) 48.2 % (40.0-70.0); PLATELET COUNT (AUTO) 135 K/uL (130-430); RED CELL DISTRIBUTION WIDTH 13.5 % (9.0-15.0); WHITE BLOOD COUNT (AUTO) 7.1 K/uL (4.8-10.8)
[2020-03-27 09:47] LABS: ALANINE AMINOTRANSFERASE 54 U/L (12-78); ALBUMIN 3.3 g/dL (3.4-4.8); ANION GAP 11 (5-15); ASPARTATE AMINOTRANSFERASE 29 U/L (10-37); CHLORIDE 107 mmol/L (98-107); GLUCOSE 148 mg/dL (70-99); POTASSIUM 3.5 mmol/L (3.5-5.1); SODIUM SERUM 141 mmol/L (136-145); TOTAL BILIRUBIN 0.5 mg/dL (0.0-1.0); UREA NITROGEN, BLOOD 24 mg/dL (8-21)
[2020-03-27 10:01] LABS: GFR AFRICAN AMERICAN 77 mL/min (>90)
[2020-03-27 10:27] LABS: CHOLESTEROL 120 mg/dL (<200); HDL CHOLESTEROL 35 mg/dL (>45); LDL CHOLESTEROL 57 mg/dL (<100); TRIGLYCERIDES 267 mg/dL (30-150)
[2020-03-27 11:20] VITALS: BP_SYST 119
[2020-03-27 16:00] VITALS: BP_SYST 134
[2020-03-27 18:17] VITALS: BP_SYST 116
== END 2020-03-27 22:25 | disposition home or self-care (01) ==
LOC: SED 01:16 → STU 02:46
PROVIDERS: ADMIT Internal Medicine Hospice and Palliative Medicine; ATTEND Internal Medicine Hospice and Palliative Medicine
DX: R07.89 Other chest pain (principal); Z20.822 Contact with and (suspected) exposure to COVID-19; I25.10 Atherosclerotic heart disease of native coronary artery without angina pectoris; I10 Essential (primary) hypertension; E11.9 Type 2 diabetes mellitus without complications; F20.9 Schizophrenia, unspecified; J44.9 Chronic obstructive pulmonary disease, unspecified; E78.5 Hyperlipidemia, unspecified; E78.00 Pure hypercholesterolemia, unspecified; H54.61 Unqualified visual loss, right eye, normal vision left eye; H40.9 Unspecified glaucoma; F17.200 Nicotine dependence, unspecified, uncomplicated; Z95.5 Presence of coronary angioplasty implant and graft; Z95.0 Presence of cardiac pacemaker; Z79.82 Long term (current) use of aspirin; Z79.899 Other long term (current) drug therapy
CPT/HCPCS: 36415; 71045; 80053; 80061; 82550; 83880; 84484; 85025; 85379; 87426; 93005; 96372; 96374; 96376; 99285; G0378; J1650; J2270 ×2

== ENCOUNTER 2021-04-05 12:43 | Emergency (ER) | payer OTHER, MEDICAID ==
[~2021-04-05] VITALS: Ht 170.2 cm; Wt 81.6 kg
[~2021-04-05 12:43] MED LIST changes: +NITSL SL
[2021-04-05 12:44] VITALS: BP_SYST 127
[2021-04-05 15:23] LABS: BASOPHILS % (AUTO) 0.5 % (0.0-2.0); EOSINOPHILS # (AUTO) 0.3 K/uL (0.0-0.4); EOSINOPHILS % (AUTO) 3.8 % (0.0-4.0); HEMATOCRIT 46.8 % (36-54); HEMOGLOBIN 15.8 g/dL (14.0-18.0); LYMPHOCYTES # (AUTO) 2.1 K/uL (1.0-5.5); LYMPHOCYTES % (AUTO) 30.4 % (20.5-51.5); MEAN CORPUSCULAR HEMOGLOBIN 30 pg (27-31); MEAN CORPUSCULAR HGB CONC 34 % (32-36); MEAN CORPUSCULAR VOLUME 88 fL (79.0-98.0); MONOCYTES # (AUTO) 0.7 K/uL (0.0-1.0); MONOCYTES % (AUTO) 9.8 % (1.7-9.3); NEUTROPHILS # (AUTO) 3.8 K/uL (1.8-7.7); NEUTROPHILS % (AUTO) 55.5 % (40.0-70.0); PLATELET COUNT (AUTO) 168 K/uL (130-430); RED BLOOD CELL COUNT(AUTO) 5.35 MIL/uL (4.2-6.2); RED CELL DISTRIBUTION WIDTH 13.6 % (9.0-15.0); WHITE BLOOD COUNT (AUTO) 6.8 K/uL (4.8-10.8)
[2021-04-05 15:39] LABS: CALCIUM 9.4 mg/dL (8.4-11.0); CREATININE 1.26 mg/dL (0.55-1.30); POTASSIUM 4.7 mmol/L (3.5-5.1)
[2021-04-05 15:47] LABS: ALBUMIN 3.8 g/dL (3.4-4.8); TOTAL BILIRUBIN 0.4 mg/dL (0.0-1.0)
[2021-04-05 18:57] VITALS: BP_SYST 132
== END 2021-04-05 18:57 | disposition left against medical advice (07) ==
LOC: SED 12:43
DX: R55 Syncope and collapse (principal); R41.82 Altered mental status, unspecified; J44.9 Chronic obstructive pulmonary disease, unspecified; Z79.899 Other long term (current) drug therapy
CPT/HCPCS: 36415; 70450-TC; 71045; 76376; 80053; 84484; 85025; 93005; 99285

== ENCOUNTER 2021-07-27 14:37 | Emergency (ER) | payer OTHER, MEDICAID ==
[~2021-07-27] VITALS: Ht 182.9 cm; Wt 71.7 kg
[2021-07-27 15:00] VITALS: BP_SYST 124
--- NOTE | 2021-07-27 15:00 | NUR ---
Patient to ER bed 5 to gown for evaluation. Side rails up. Report given to CHATO EARL.
[2021-07-27 15:48] VITALS: BP_SYST 113
--- NOTE | 2021-07-27 15:49 | NUR ---
Pt coming from home ambulatory with steady gait c/o left testicle pain x2 weeks. There is swelling noted and is tender to the touch. No pain or burning sensation upon urination. Pt is A&Ox4. Skin intact. NKA. Has hx of pacemaker. VSS. Bed in lowest position.
--- NOTE | 2021-07-27 15:50 | NUR ---
ER at bedside examining patient.
[2021-07-27 17:02] LABS: BASOPHILS % (AUTO) 0.3 % (0.0-2.0); EOSINOPHILS % (AUTO) 0.2 % (0.0-4.0); HEMATOCRIT 38.5 % (36-54); HEMOGLOBIN 13.2 g/dL (14.0-18.0); LYMPHOCYTES # (AUTO) 1.3 K/uL (1.0-5.5); MEAN CORPUSCULAR HEMOGLOBIN 29 pg (27-31); MEAN CORPUSCULAR HGB CONC 34 % (32-36); MEAN CORPUSCULAR VOLUME 85 fL (79.0-98.0); MONOCYTES # (AUTO) 1.2 K/uL (0.0-1.0); MONOCYTES % (AUTO) 7.4 % (1.7-9.3); NEUTROPHILS # (AUTO) 13.9 K/uL (1.8-7.7); NEUTROPHILS % (AUTO) 84.1 % (40.0-70.0); PLATELET COUNT (AUTO) 218 K/uL (130-430); RED BLOOD CELL COUNT(AUTO) 4.52 MIL/uL (4.2-6.2); RED CELL DISTRIBUTION WIDTH 13.1 % (9.0-15.0); WHITE BLOOD COUNT (AUTO) 16.5 K/uL (4.8-10.8)
[2021-07-27 17:14] LABS: CALCIUM 8.6 mg/dL (8.4-11.0); CREATININE 1.51 mg/dL (0.55-1.30); POTASSIUM 3.6 mmol/L (3.5-5.1)
[2021-07-27 17:27] LABS: TOTAL BILIRUBIN 0.7 mg/dL (0.0-1.0)
[2021-07-27 17:28] LABS: ALBUMIN 2.8 g/dL (3.4-4.8)
[2021-07-27] MEDS ORDERED: LEVO500T90 PO (18:18)
[2021-07-27] MEDS ORDERED: ACET1TAB93 PO (18:18)
[2021-07-27] MEDS ORDERED: MORPHINE 2 MG/ML INJ. SYRINGE IM ONE (18:30)
[2021-07-27] MEDS ORDERED: levoFLOXacin 500 MG TABLET PO ONE (18:30)
--- NOTE | 2021-07-27 19:24 | NUR ---
Patient given written and verbal discharge instructions and verbalizes understanding. ER MD discussed with patient the results and treatment provided. Patient in stable condition. ID arm band removed. Rx of levaquin and tylenol#3 given. Patient educated on pain management and to follow up with PMD. Pain Scale 3. Opportunity for questions provided and answered. Medication side effect fact sheet provided.
== END 2021-07-27 19:15 | disposition home or self-care (01) ==
LOC: SED 14:37
DX: N50.812 Left testicular pain (principal); Z79.899 Other long term (current) drug therapy
CPT/HCPCS: 36415; 76870; 80053; 85025; 96372; 99284; J2270

== ENCOUNTER 2021-08-21 19:15 | Emergency (ER) | payer OTHER, MEDICAID ==
[~2021-08-21] VITALS: Ht 182.9 cm; Wt 93.0 kg
[~2021-08-21 19:15] MED LIST changes: +ACET1TAB93 PO; +LEVO500T90 PO
--- NOTE | 2021-08-21 19:25 | NUR ---
PATIENT PLACED IN ROOM AND DR. HU TO BEDSIDE FOR EVALUATION. PER PATIENT, NOTICED SCROTAL SWELLING X3 WEEKS WITH BLEEDING NOTED SINCE YESTERDAY. SEEN YESTERDAY AT PMD AND TOLD TO COME TO ER. NO PAIN PRESENT. NO DIABETES HISTORY.
[2021-08-21 19:33] VITALS: BP_SYST 149
--- NOTE | 2021-08-21 19:48 | NUR ---
Pt to bed 5 w/ c/o hematuria and left scrotal pain/swelling x 3 weeks. Scrotal bleeding began today per patient. Pt ambulates with strong steady gait. Scrotum tender to palpation. Pain 9/10 sharp and throbbing in nature. Pt placed on monitor technician and pulse oximetry.
--- NOTE | 2021-08-21 20:23 | NUR ---
Patient to CT at this time
[2021-08-21 20:24] LABS: BASOPHILS % (AUTO) 0.6 % (0.0-2.0); EOSINOPHILS # (AUTO) 0.3 K/uL (0.0-0.4); EOSINOPHILS % (AUTO) 3.9 % (0.0-4.0); HEMATOCRIT 38.8 % (36-54); HEMOGLOBIN 13.3 g/dL (14.0-18.0); LYMPHOCYTES # (AUTO) 1.6 K/uL (1.0-5.5); LYMPHOCYTES % (AUTO) 22.7 % (20.5-51.5); MEAN CORPUSCULAR HEMOGLOBIN 29 pg (27-31); MEAN CORPUSCULAR HGB CONC 34 % (32-36); MEAN CORPUSCULAR VOLUME 84 fL (79.0-98.0); MONOCYTES # (AUTO) 0.8 K/uL (0.0-1.0); MONOCYTES % (AUTO) 11.2 % (1.7-9.3); NEUTROPHILS # (AUTO) 4.4 K/uL (1.8-7.7); NEUTROPHILS % (AUTO) 61.6 % (40.0-70.0); PLATELET COUNT (AUTO) 190 K/uL (130-430); RED BLOOD CELL COUNT(AUTO) 4.61 MIL/uL (4.2-6.2); RED CELL DISTRIBUTION WIDTH 14.2 % (9.0-15.0); WHITE BLOOD COUNT (AUTO) 7.2 K/uL (4.8-10.8)
[2021-08-21 20:34] LABS: ANION GAP 9 (5-15); CALCIUM 9.6 mg/dL (8.4-11.0); CHLORIDE 104 mmol/L (98-107); CREATININE 1.65 mg/dL (0.55-1.30); GLUCOSE 114 mg/dL (70-99); POTASSIUM 3.4 mmol/L (3.5-5.1); SODIUM SERUM 136 mmol/L (136-145); UREA NITROGEN, BLOOD 19 mg/dL (8-21)
[2021-08-21 20:37] LABS: GFR AFRICAN AMERICAN 53 mL/min (>90)
[2021-08-21 20:38] LABS: INR 1.1 (0.80-1.20); PROTHROMBIN TIME 10.8 SECS (9.5-12.5)
[2021-08-21 20:40] LABS: ALANINE AMINOTRANSFERASE 5 U/L (12-78); ALBUMIN 2.6 g/dL (3.4-4.8); ASPARTATE AMINOTRANSFERASE 12 U/L (10-37); TOTAL BILIRUBIN 0.4 mg/dL (0.0-1.0)
[2021-08-21 20:42] LABS: C-REACTIVE PROTEIN QUANT < 0.2 mg/dL (0-0.5)
[2021-08-21] MEDS ORDERED: BACITRACIN 1 GM OINT TP ONE ×2 (22:15→22:33)
[2021-08-21] MEDS ORDERED: CLIN-22 PO (22:20)
[2021-08-21] MEDS ORDERED: CLINDAMYCIN HCL 150 MG CAPSULE PO ONE (22:30)
--- NOTE | 2021-08-21 22:45 | NUR ---
Dressing applied to scrotum with bactrim
--- NOTE | 2021-08-21 22:55 | NUR ---
Culturist attempting to acquire taxi service for patient at this time.
--- NOTE | 2021-08-21 22:55 | NUR ---
Patient given written and verbal discharge instructions and verbalizes understanding. ER MD discussed with patient the results and treatment provided. Patient in stable condition. ID arm band removed. Rx of clindamycin given. Patient educated on pain management and to follow up with PMD. Pain Scale . Opportunity for questions provided and answered. Medication side effect fact sheet provided.
--- NOTE | 2021-08-21 23:04 | NUR ---
Pt decided to ambulate home at this time without vehicle. Pt states "I only live 0.4 miles away". PT demonstrated strong, steady and independent gait to me at this time 100+ feet. Pt is aox4, GCS 15, denies dizziness or lightheadedness.
[2021-08-21 23:09] VITALS: BP_SYST 127
== END 2021-08-21 23:09 | disposition home or self-care (01) ==
LOC: SED 19:15
DX: N49.2 Inflammatory disorders of scrotum (principal); Z79.899 Other long term (current) drug therapy
CPT/HCPCS: 36415; 72192-TC; 76376; 80053; 83605; 85025; 85610-TC; 85730-TC; 86140; 87040; 99284

== ENCOUNTER 2022-03-31 22:43 | Inpatient (IN) | payer OTHER, MEDICAID ==
[~2022-03-31] VITALS: Ht 182.9 cm; Wt 78.0 kg
[~2022-03-31 22:43] MED LIST changes: +CLIN-22 PO; +LEVO-62 PO; -LEVO500T90 PO
[2022-03-31 22:55] VITALS: BP_SYST 152
[2022-03-31 23:44] LABS: BASOPHILS # (AUTO) 0.1 K/uL (0.0-0.2); BASOPHILS % (AUTO) 1.1 % (0.0-2.0); EOSINOPHILS # (AUTO) 0.3 K/uL (0.0-0.4); EOSINOPHILS % (AUTO) 4.5 % (0.0-4.0); HEMATOCRIT 42.8 % (36-54); HEMOGLOBIN 14.9 g/dL (14.0-18.0); LYMPHOCYTES # (AUTO) 2.2 K/uL (1.0-5.5); LYMPHOCYTES % (AUTO) 35.2 % (20.5-51.5); MEAN CORPUSCULAR HEMOGLOBIN 30 pg (27-31); MEAN CORPUSCULAR HGB CONC 35 % (32-36); MEAN CORPUSCULAR VOLUME 87 fL (79.0-98.0); MONOCYTES # (AUTO) 0.7 K/uL (0.0-1.0); MONOCYTES % (AUTO) 11.1 % (1.7-9.3); NEUTROPHILS # (AUTO) 3.1 K/uL (1.8-7.7); NEUTROPHILS % (AUTO) 48.1 % (40.0-70.0); PLATELET COUNT (AUTO) 153 K/uL (130-430); RED BLOOD CELL COUNT(AUTO) 4.92 MIL/uL (4.2-6.2); RED CELL DISTRIBUTION WIDTH 13.4 % (9.0-15.0); WHITE BLOOD COUNT (AUTO) 6.4 K/uL (4.8-10.8)
[2022-04-01 00:02] LABS: ANION GAP 11 (5-15); CALCIUM 10.3 mg/dL (8.4-11.0); CHLORIDE 107 mmol/L (98-107); CREATININE 1.27 mg/dL (0.55-1.30); GFR AFRICAN AMERICAN 72 mL/min (>90); GLUCOSE 148 mg/dL (70-99); UREA NITROGEN, BLOOD 34 mg/dL (8-21)
[2022-04-01 00:09] LABS: ALANINE AMINOTRANSFERASE 23 U/L (12-78); ALBUMIN 3.6 g/dL (3.4-4.8); ASPARTATE AMINOTRANSFERASE 17 U/L (10-37); TOTAL BILIRUBIN 0.4 mg/dL (0.0-1.0)
[2022-04-01] MEDS ORDERED: ATROPINE (07:06)
[2022-04-01] MEDS ORDERED: ATOR40TA68 PO (07:06)
[2022-04-01] MEDS ORDERED: GEMF600T89 PO (07:06)
[2022-04-01] MEDS ORDERED: MORPHINE 2 MG/ML INJ. SYRINGE IVP PRN (09:00)
[2022-04-01] MEDS ORDERED: ONDANSETRON HCL 4 MG/2 ML VIAL IVP PRN (09:00)
[2022-04-01] MEDS ORDERED: NALOXONE HCL 0.4 MG/ML AMP (NARCAN) IVP PRN ×2 (09:00→09:15)
[2022-04-01] MEDS ORDERED: ACETAMINOPHEN 325 MG TABLET PO PRN ×2 (09:00→15:00)
[2022-04-01] MEDS ORDERED: NITROGLYCERIN 0.4 MG TAB.SUBL SL PRN (09:15)
[2022-04-01] MEDS ORDERED: ACETAMINOPHEN/CODEINE 300 MG-30 MG TABLET PO PRN (09:15)
[2022-04-01 09:47] LABS: BASOPHILS % (AUTO) 0.5 % (0.0-2.0); EOSINOPHILS # (AUTO) 0.3 K/uL (0.0-0.4); EOSINOPHILS % (AUTO) 4.4 % (0.0-4.0); HEMATOCRIT 45.4 % (36-54); HEMOGLOBIN 15.8 g/dL (14.0-18.0); LYMPHOCYTES # (AUTO) 1.9 K/uL (1.0-5.5); LYMPHOCYTES % (AUTO) 26.2 % (20.5-51.5); MEAN CORPUSCULAR HEMOGLOBIN 31 pg (27-31); MEAN CORPUSCULAR HGB CONC 35 % (32-36); MEAN CORPUSCULAR VOLUME 89 fL (79.0-98.0); MONOCYTES # (AUTO) 0.7 K/uL (0.0-1.0); NEUTROPHILS # (AUTO) 4.4 K/uL (1.8-7.7); NEUTROPHILS % (AUTO) 59.9 % (40.0-70.0); PLATELET COUNT (AUTO) 142 K/uL (130-430); RED CELL DISTRIBUTION WIDTH 13.8 % (9.0-15.0); WHITE BLOOD COUNT (AUTO) 7.4 K/uL (4.8-10.8)
[2022-04-01 10:02] LABS: CALCIUM 9.8 mg/dL (8.4-11.0); CREATININE 1.24 mg/dL (0.55-1.30)
[2022-04-01 10:09] LABS: ALBUMIN 3.6 g/dL (3.4-4.8); TOTAL BILIRUBIN 0.4 mg/dL (0.0-1.0)
[2022-04-01] MEDS ORDERED: ASPIRIN 81 MG TAB.CHEW PO SCH (16:25)
[2022-04-01 16:30] VITALS: BP_SYST 117
[2022-04-01] MEDS ORDERED: acetaZOLAMIDE 250 MG TABLET (DIAMOX) PO ONE (17:00)
[2022-04-01] MEDS ORDERED: ATORVASTATIN 20 MG TABLET PO ONE (17:00)
[2022-04-01] MEDS ORDERED: METOPROLOL SUCCINATE 25 MG TAB.SR.24H (TOPROL XL) PO ONE (17:00)
[2022-04-01 20:00] VITALS: BP_SYST 118
[2022-04-01] MEDS: TIMOLOL MALEATE 0.5% OPHTHALMIC DROPS 5 ML EACH EYE SCH (21:00)
[2022-04-01] MEDS: BRIMONIDINE TARTRATE 0.2% 5 mL EYE DROPS EACH EYE SCH (21:00)
[2022-04-02] VITALS: BP_SYST 115
[2022-04-02] MEDS ORDERED: METO-540 PO (06:01)
[2022-04-02 08:00] VITALS: BP_SYST 117
[2022-04-02] MEDS: TIMOLOL MALEATE 0.5% OPHTHALMIC DROPS 5 ML EACH EYE SCH (08:18)
[2022-04-02] MEDS: BRIMONIDINE TARTRATE 0.2% 5 mL EYE DROPS EACH EYE SCH (08:18)
[2022-04-02 08:47] LABS: BASOPHILS % (AUTO) 0.4 % (0.0-2.0); EOSINOPHILS # (AUTO) 0.3 K/uL (0.0-0.4); EOSINOPHILS % (AUTO) 4.8 % (0.0-4.0); HEMATOCRIT 46.7 % (36-54); HEMOGLOBIN 15.7 g/dL (14.0-18.0); LYMPHOCYTES # (AUTO) 2.2 K/uL (1.0-5.5); LYMPHOCYTES % (AUTO) 33.6 % (20.5-51.5); MEAN CORPUSCULAR HEMOGLOBIN 30 pg (27-31); MEAN CORPUSCULAR HGB CONC 34 % (32-36); MEAN CORPUSCULAR VOLUME 89 fL (79.0-98.0); MONOCYTES # (AUTO) 0.6 K/uL (0.0-1.0); MONOCYTES % (AUTO) 9.5 % (1.7-9.3); NEUTROPHILS # (AUTO) 3.4 K/uL (1.8-7.7); NEUTROPHILS % (AUTO) 51.7 % (40.0-70.0); PLATELET COUNT (AUTO) 161 K/uL (130-430); RED BLOOD CELL COUNT(AUTO) 5.24 MIL/uL (4.2-6.2); RED CELL DISTRIBUTION WIDTH 13.4 % (9.0-15.0); WHITE BLOOD COUNT (AUTO) 6.5 K/uL (4.8-10.8)
[2022-04-02] MEDS ORDERED: ATORVASTATIN 20 MG TABLET PO SCH (09:00)
[2022-04-02] MEDS ORDERED: ASPIRIN 81 MG TAB.CHEW PO SCH (09:00)
[2022-04-02] MEDS ORDERED: METOPROLOL SUCCINATE 25 MG TAB.SR.24H (TOPROL XL) PO SCH (09:00)
[2022-04-02] MEDS ORDERED: acetaZOLAMIDE 250 MG TABLET (DIAMOX) PO SCH (09:00)
[2022-04-02 09:39] LABS: CREATININE 1.31 mg/dL (0.55-1.30)
[2022-04-02 11:51] VITALS: BP_SYST 104
[2022-04-02 12:39] VITALS: BP_SYST 120
== END 2022-04-02 20:25 | disposition home or self-care (01) | DRG 192 ==
LOC: SED 22:43 → STU 04-01 05:28
PROVIDERS: ADMIT Internal Medicine; ATTEND Internal Medicine
DX: J44.9 Chronic obstructive pulmonary disease, unspecified (principal); E11.9 Type 2 diabetes mellitus without complications; F20.9 Schizophrenia, unspecified; Z20.822 Contact with and (suspected) exposure to COVID-19; E78.00 Pure hypercholesterolemia, unspecified; I25.10 Atherosclerotic heart disease of native coronary artery without angina pectoris; Z79.82 Long term (current) use of aspirin; Z79.899 Other long term (current) drug therapy; Z95.0 Presence of cardiac pacemaker; I25.2 Old myocardial infarction
CPT/HCPCS: 36415; 71045; 80048; 80053; 83735; 83880; 84484; 85025; 93005; 93306; 99285; G0378

== ENCOUNTER 2023-07-22 06:44 | Emergency (ER) | payer OTHER, MEDICAID ==
[~2023-07-22] VITALS: Ht 177.8 cm; Wt 72.6 kg
[~2023-07-22 06:44] MED LIST changes: -ACET1TAB93 PO; +ACET250T28 PO; +ATOR40TA68 PO; +ATROPINE; -DIA250 PO; +GEMF600T89 PO; +METO-304 PO; -TIMO5DRO15 EACH EYE; +TIMO5DRO18 EACH EYE
[2023-07-22 07:08] VITALS: BP_SYST 108; PULSE 66; RESP 18; TEMP 97.9; O2SAT 97
[2023-07-22] MEDS ORDERED: NYST15CR37 TP (07:13)
[2023-07-22] MEDS ORDERED: DOXY100C5 PO (07:14)
[2023-07-22 07:24] VITALS: BP_SYST 108; PULSE 66; RESP 18; TEMP 97.9; O2SAT 97
== END 2023-07-22 07:23 | disposition home or self-care (01) ==
LOC: SED 06:44
DX: L03.115 Cellulitis of right lower limb (principal); B35.3 Tinea pedis; I25.2 Old myocardial infarction; J44.9 Chronic obstructive pulmonary disease, unspecified; Z79.899 Other long term (current) drug therapy; Z79.2 Long term (current) use of antibiotics
CPT/HCPCS: 99283

== ENCOUNTER 2023-09-24 00:12 | Emergency (ER) | payer OTHER, MEDICAID ==
[~2023-09-24] VITALS: Ht 182.9 cm; Wt 68.0 kg
[~2023-09-24 00:12] MED LIST changes: +DOXY100C5 PO; +NYST15CR37 TP
[2023-09-24 00:19] VITALS: BP_SYST 94; PULSE 61; RESP 18; TEMP 96.3; O2SAT 97
[2023-09-24] MEDS ORDERED: IBUP-1969 PO (01:41)
[2023-09-24 02:40] VITALS: BP_SYST 116; PULSE 62; RESP 18; TEMP 97.6; O2SAT 94
== END 2023-09-24 02:40 | disposition home or self-care (01) ==
LOC: SED 00:12
DX: M25.562 Pain in left knee (principal); J44.9 Chronic obstructive pulmonary disease, unspecified
CPT/HCPCS: 73564; 99283